=== PATIENT | male | born 1960 | race African-American/Black ===

== ENCOUNTER 2018-05-31 12:49 | Emergency (ER) | payer OTHER, MEDICAID ==
[~2018-05-31] VITALS: Ht 185.4 cm; Wt 120.5 kg
[2018-05-31 17:57] VITALS: BP 132/81
== END 2018-05-31 17:43 | disposition home or self-care (01) ==
LOC: ER 12:49
DX: J06.9 Acute upper respiratory infection, unspecified (principal)
CPT/HCPCS: 71045; 99283

== ENCOUNTER 2018-06-12 13:54 | Inpatient (IN) | payer MEDICAID, OTHER ==
[~2018-06-12] VITALS: Ht 188 cm; Wt 117.9 kg
[2018-06-12] MEDS ORDERED: ASPIRIN 81MG TABLET PO ONE (14:45)
[2018-06-12] MEDS: NITROGLYCERIN 0.4MG TABLET SL SL PRN ×2 (15:00→18:40)
[2018-06-12 15:33] LABS: CHLORIDE 105 mEq/L (98-107)
[2018-06-12 15:38] LABS: BASOPHILS % 0.7 % (0.0-2.0); EOSINOPHILS % 3.4 % (0.0-5.0); HEMATOCRIT. 44.9 % (42.0-52.0); HEMOGLOBIN. 14.7 g/dL (14.0-18.0); LYMPHOCYTES % 32.1 % (20.0-50.0); MEAN CORPUSCULAR VOLUME 85.5 fL (80.0-94.0); MEAN PLATELET VOLUME 8.5 fl (7.4-10.4); MONOCYTES % 6.8 % (2.0-8.0); PLATELET 269 x1000/uL (130-400); RED BLOOD CELL COUNT 5.25 mill/uL (4.7-6.1); RED CELL DISTRIBUTION WIDTH 13.7 % (11.6-14.6)
[2018-06-12 15:41] LABS: CLARITY URINE CLEAR (CLEAR); COLOR URINE YELLOW (YELLOW); KETONES URINE NEGATIVE (NEGATIVE); LEUKOCYTE ESTERASE URINE NEGATIVE (NEGATIVE); NITRITE URINE NEGATIVE (NEGATIVE); OCCULT BLOOD URINE NEGATIVE (NEGATIVE); PH URINE 6.5 (4.5-8.0); PROTEIN URINE NEGATIVE (NEGATIVE); SPECIFIC GRAVITY URINE 1.016 (1.005-1.030); UROBILINOGEN URINE 0.2 E.U./dL (0.2-1.0)
[2018-06-12 15:41] LABS: D-DIMER 0.24 mg/L FEU (<0.50); PARTIAL THROMBOPLASTIN TIME 27.8 sec (23.4-31.0); PROTHROMBIN TIME 9.6 sec (9.1-11.1)
[2018-06-12 15:58] LABS: *BENZODIAZEPINES SCREEN URINE NEGATIVE (NEGATIVE); *COCAINE SCREEN URINE NEGATIVE (NEGATIVE); METHADONE URINE SCREEN NEGATIVE (NEGATIVE); OPIATES URINE SCREEN NEGATIVE (NEGATIVE); PHENCYCLIDINE URINE SCREEN NEGATIVE (NEGATIVE)
[2018-06-12 15:59] LABS: *AMPHETAMINES SCREEN URINE NEGATIVE (NEGATIVE); *BARBITURATES SCREEN URINE NEGATIVE (NEGATIVE); CANNABINOID URINE SCREEN NEGATIVE (NEGATIVE)
[2018-06-12] MEDS ORDERED: ACETAMINOPHEN 325MG TABLET PO PRN (18:45)
[2018-06-12] MEDS ORDERED: MAGNESIUM/ALUMINUM HYDROXIDE/SIMETHICONE 30ML UDC PO PRN (18:45)
[2018-06-12] MEDS ORDERED: NA PHOS,M-B/NA PHOS,DI-BA ENEMA 118ML PR PRN (18:45)
[2018-06-12] MEDS ORDERED: HYDRALAZINE 20MG/ML VIAL IV PRN (18:45)
[2018-06-12] MEDS ORDERED: IPRATROPIUM/ALBUTEROL 0.5-3(2.5)MG/3ML NEB INH PRN (18:45)
[2018-06-12] MEDS ORDERED: GUAIFENESIN 200MG/10ML SUGAR FREE UDC PO PRN (18:45)
[2018-06-12] MEDS ORDERED: DOCUSATE SODIUM 100MG CAPSULE PO PRN (18:45)
[2018-06-12] MEDS ORDERED: CLONIDINE 0.1MG TABLET PO PRN (18:45)
[2018-06-12] MEDS ORDERED: DIPHENHYDRAMINE 50MG/ML VIAL IV PRN (18:45)
[2018-06-12] MEDS ORDERED: HYDROMORPHONE HCL/PF 2MG/ML CPJ IV PRN (18:45)
[2018-06-12] MEDS ORDERED: LORAZEPAM 2MG/ML CPJ IV PRN (18:45)
[2018-06-12] MEDS ORDERED: ONDANSETRON HCL 4MG/2ML INJ IV PRN (18:45)
[2018-06-12] MEDS: ENOXAPARIN 40MG/0.4ML SYR SUBCUT SCH (22:15)
[2018-06-12] MEDS: HYDROCODONE/ACETAMINOPHEN 10/325MG TABLET PO PRN (22:16)
[2018-06-12 22:21] VITALS: BP 135/85
[2018-06-12] MEDS ORDERED: D-ME473S8 MT (22:43)
[2018-06-12] MEDS ORDERED: AZIT250T12 PO (22:43)
[2018-06-12] MEDS ORDERED: AMLO10TA80 MT (22:43)
[2018-06-12] MEDS ORDERED: AZIT250T12 MT (22:43)
[2018-06-12] MEDS ORDERED: BENZ100C86 MT (22:43)
[2018-06-12] MEDS ORDERED: IBUP-2030 MT (22:43)
[2018-06-12] MEDS: SODIUM CHLORIDE 0.9% INJ 3ML FLUSH IVF SCH (23:01)
[2018-06-12] MEDS ORDERED: PNEUMOCOCCAL 23-VAL P-SAC VAC 0.5 ML IM ONE (23:15)
[2018-06-12 23:54] VITALS: BP 135/65
[2018-06-13] VITALS: BP 131/84
[2018-06-13 00:37] LABS: CREATINE KINASE 188 IU/L (39-308)
[2018-06-13 00:38] LABS: CREATINE KINASE MB FRACTION 1.2 ng/mL (0.5-3.6)
[2018-06-13 04:00] VITALS: BP 122/78
[2018-06-13] MEDS: SODIUM CHLORIDE 0.9% INJ 3ML FLUSH IVF SCH ×3 (05:58→21:03)
[2018-06-13] MEDS: HYDROCODONE/ACETAMINOPHEN 10/325MG TABLET PO PRN ×2 (05:58→17:18)
[2018-06-13 06:36] LABS: BASOPHILS % 0.8 % (0.0-2.0); EOSINOPHILS % 1.9 % (0.0-5.0); HEMATOCRIT. 43.2 % (42.0-52.0); HEMOGLOBIN. 14.1 g/dL (14.0-18.0); LYMPHOCYTES % 31.4 % (20.0-50.0); MEAN CORPUSCULAR HEMOGLOBIN 27.8 pg (28.0-32.0); MEAN CORPUSCULAR VOLUME 85.6 fL (80.0-94.0); MEAN PLATELET VOLUME 8.6 fl (7.4-10.4); MONOCYTES % 6.4 % (2.0-8.0); NEUTROPHILS % 59.5 % (40.0-76.0); PLATELET 256 x1000/uL (130-400); RED BLOOD CELL COUNT 5.05 mill/uL (4.7-6.1)
[2018-06-13 06:48] LABS: CHLORIDE 102 mEq/L (98-107)
[2018-06-13 07:00] LABS: CREATINE KINASE 202 IU/L (39-308); CREATINE KINASE MB FRACTION 1.1 ng/mL (0.5-3.6); LDL CHOLESTEROL 118 mg/dL (5-100)
[2018-06-13 07:01] LABS: HDL CHOLESTEROL 45 mg/dL (40-59); T4 FREE 1.02 ng/dL (0.76-1.46)
[2018-06-13] MEDS: ASPIRIN 81MG EC TABLET PO SCH (09:15)
[2018-06-13 12:00] VITALS: BP 144/81
[2018-06-13 16:00] VITALS: BP 121/71
[2018-06-13 18:52] LABS: T4 FREE 0.99 ng/dL (0.76-1.46)
[2018-06-13 18:54] LABS: CREATINE KINASE 237 IU/L (39-308)
[2018-06-13 18:55] LABS: CREATINE KINASE MB FRACTION 1.4 ng/mL (0.5-3.6)
[2018-06-13 20:00] VITALS: BP 153/84
[2018-06-13] MEDS: ENOXAPARIN 40MG/0.4ML SYR SUBCUT SCH (21:01)
[2018-06-14] VITALS: BP 134/87
[2018-06-14] MEDS: HYDROCODONE/ACETAMINOPHEN 10/325MG TABLET PO PRN (02:08)
[2018-06-14 02:48] LABS: CREATINE KINASE 260 IU/L (39-308)
[2018-06-14 04:00] VITALS: BP 136/80
[2018-06-14] MEDS: SODIUM CHLORIDE 0.9% INJ 3ML FLUSH IVF SCH (06:25)
[2018-06-14 07:59] LABS: CREATINE KINASE 271 IU/L (39-308); CREATINE KINASE MB FRACTION 1.7 ng/mL (0.5-3.6)
[2018-06-14 08:00] VITALS: BP 127/70
[2018-06-14] MEDS: ASPIRIN 81MG EC TABLET PO SCH (09:00)
[2018-06-14 10:10] VITALS: BP 127/70
== END 2018-06-14 11:35 | disposition home or self-care (01) | DRG 203 ==
LOC: ER 13:54 → 6WST 16:33 → EDBEDREQ 16:36 → ENRESERV 20:23
PROVIDERS: ADMIT Internal Medicine; ATTEND Internal Medicine
DX: R07.89 Other chest pain (principal); E78.5 Hyperlipidemia, unspecified; I10 Essential (primary) hypertension; Z79.899 Other long term (current) drug therapy
CPT/HCPCS: 36415; 71045; 80061; 80305; 82550; 82553; 83036; 83880; 84439; 84443; 84484; 85379; 90732; 93005; 93306; 93970; 99285; J1650

== ENCOUNTER 2019-01-02 09:14 | Emergency (ER) | payer MEDICAID ==
[~2019-01-02] VITALS: Ht 182.9 cm; Wt 100.0 kg
[~2019-01-02 09:14] MED LIST: AMLO10TA80 MT; AZIT250T12 MT; AZIT250T12 PO; BENZ100C86 MT; D-ME473S8 MT; IBUP-2030 MT
[2019-01-02 09:45] VITALS: BP 128/89
[2019-01-02] MEDS ORDERED: TETANUS, DIPHTHERIA, PERTUSSIS VAC/PF 0.5ML (>7YR OLD) IM ONE (10:15)
== END 2019-01-02 10:36 | disposition home or self-care (01) ==
LOC: ER 09:14
DX: S91.332A Puncture wound without foreign body, left foot, initial encounter (principal); W22.8XXA Striking against or struck by other objects, initial encounter; Y93.89 Activity, other specified; Y92.89 Other specified places as the place of occurrence of the external cause; Y99.8 Other external cause status; Z79.899 Other long term (current) drug therapy
CPT/HCPCS: 73630; 90471; 90715; 99283

== ENCOUNTER 2019-04-10 08:46 | Emergency (ER) | payer MEDICAID ==
[~2019-04-10] VITALS: Ht 185.4 cm; Wt 98.0 kg
[2019-04-10] MEDS ORDERED: IBUPROFEN 600MG TABLET PO ONE (09:45)
[2019-04-10 09:53] VITALS: BP 135/86
== END 2019-04-10 10:07 | disposition home or self-care (01) ==
LOC: ER 08:46
DX: H66.92 Otitis media, unspecified, left ear (principal); Z79.899 Other long term (current) drug therapy
CPT/HCPCS: 99283

== ENCOUNTER 2023-07-04 15:23 | Emergency (ER) | payer MEDICAID, OTHER ==
[~2023-07-04] VITALS: Ht 185.4 cm; Wt 105.0 kg
[2023-07-04 15:31] VITALS: O2SAT 98
[2023-07-04 16:34] LABS: BASOPHILS % 0.8 % (0.0-2.0); DIFFERENTIAL COMMENT 0; EOSINOPHILS % 3.2 % (0.0-5.0); HEMATOCRIT. 37.6 % (42.0-52.0); HEMOGLOBIN. 12.3 g/dL (14.0-18.0); LYMPHOCYTES % 35.1 % (20.0-50.0); MEAN CORPUSCULAR HEMOGLOBIN 26.4 pg (28.0-32.0); MEAN CORPUSCULAR HGB CONC 32.5 g/dL (31.0-37.0); MEAN CORPUSCULAR VOLUME 81.2 fL (80.0-94.0); MEAN PLATELET VOLUME 8.4 fl (7.4-10.4); NEUTROPHILS % 54.9 % (40.0-76.0); PLATELET 263 x1000/uL (130-400); RED BLOOD CELL COUNT 4.64 mill/uL (4.7-6.1); RED CELL DISTRIBUTION WIDTH 16.3 % (11.6-14.6); WHITE BLOOD COUNT 5.9 x1000/uL (4.5-11.0)
[2023-07-04 16:47] LABS: ALANINE AMINOTRANSFERASE 22 IU/L (10-49); ALBUMIN 4.5 g/dL (3.2-4.8); ASPARTATE AMINOTRANSFERASE 28 IU/L (<34); BILIRUBIN TOTAL 0.6 mg/dL (0.1-1.0); CALCIUM 9.1 mg/dL (8.7-10.4); CARBON DIOXIDE 27 mEq/L (21-32); CHLORIDE 106 mEq/L (98-107); GLUCOSE 78 mg/dL (70-105); POTASSIUM 4.3 mEq/L (3.5-5.1); PROTEIN TOTAL 7.5 g/dL (6.0-8.3); SODIUM 139 mEq/L (136-145); UREA NITROGEN BLOOD 17 mg/dL (9-23)
[2023-07-04 16:48] LABS: TROPONIN I HIGH SENSITIVITY < 4 ng/L (3.0-53)
[2023-07-04 19:50] LABS: TROPONIN I HIGH SENSITIVITY < 4 ng/L (3.0-53)
[2023-07-04 21:11] VITALS: BP 147/85; PULSE 68; RESP 18; TEMP 98.1
== END 2023-07-04 21:12 | disposition home or self-care (01) ==
LOC: ER 15:23
DX: R05.9 Cough, unspecified (principal); R09.81 Nasal congestion; Z79.899 Other long term (current) drug therapy; Z20.822 Contact with and (suspected) exposure to COVID-19
CPT/HCPCS: 36415; 71045; 80053; 84484; 85025; 87426; 87804; 93005; 99285

== ENCOUNTER 2024-03-25 12:04 | Emergency (ER) | payer MEDICARE, MEDICAID ==
[~2024-03-25] VITALS: Ht 185.4 cm; Wt 108.0 kg
[2024-03-25 12:08] VITALS: TEMP 98.7; O2SAT 100
[2024-03-25 13:21] VITALS: BP 140/92; PULSE 85; RESP 18
[2024-03-25] MEDS: IBUPROFEN 400MG TABLET PO ONE ×2 (13:21)
[2024-03-25] MEDS ORDERED: IBUP-2028 MT (14:18)
[2024-03-25] MEDS ORDERED: ALBU18HF2 IH (14:25)
== END 2024-03-25 14:35 | disposition home or self-care (01) ==
LOC: ER 12:04
DX: R07.89 Other chest pain (principal); Z79.899 Other long term (current) drug therapy
CPT/HCPCS: 71045; 93005; 99283

== ENCOUNTER 2025-03-09 10:08 | Emergency (ER) | payer MEDICARE, MEDICAID ==
[~2025-03-09] VITALS: Ht 170.2 cm; Wt 87.0 kg
[~2025-03-09 10:08] MED LIST changes: +ALBU18HF2 IH; +IBUP-2028 MT
[2025-03-09 10:32] VITALS: O2SAT 100
[2025-03-09] MEDS ORDERED: CLIN-194 MT (11:44)
[2025-03-09 12:03] VITALS: BP 130/71; PULSE 80; RESP 15; TEMP 37; O2SAT 100
== END 2025-03-09 12:04 | disposition home or self-care (01) ==
LOC: ER 10:08
DX: K08.89 Other specified disorders of teeth and supporting structures (principal); Z79.899 Other long term (current) drug therapy
CPT/HCPCS: 99283